=== PATIENT | female | born 1960 | race Caucasian/White ===

== ENCOUNTER 2017-06-04 17:55 | Emergency (ER) | payer OTHER ==
[2017-06-04] MEDS ORDERED: ONDANSETRON 4 MG TAB.RAPDIS PO ONE (18:17)
[2017-06-04] MEDS ORDERED: AMOXICILLIN TRIHYDRATE 250 MG CAPSULE PO ONE (18:17)
[2017-06-04] MEDS ORDERED: ONDANSETRON 4 MG TAB.RAPDIS ONE (18:20)
[2017-06-04] MEDS ORDERED: AMOXICILLIN TRIHYDRATE 250 MG CAPSULE ONE (18:20)
--- NOTE | 2017-06-04 18:21 | ERNOTE ---
Time Seen by Provider: 06/04/17 18:07 Stated Complaint: COLD SYMPTOMS Presenting Symptoms:: cough Source: patient Exam Limitations: no limitations Immunizations: IMMUNIZATION HX Immunizations Up to Date Yes History of Influenza Vaccine No Hx Pneumococcal Vaccination No Allergies/Adverse Reactions: Allergies erythromycin base [Erythromycin Base] Allergy (Unknown, Verified 06/04/17 18:11) Vomiting Home Medications: HOME MEDICATIONS Albuterol Sulfate [Albuterol Sulfate 2.5 MG/0.5ML] 1 vial IH Q4H 06/04/17 [Last Taken Unknown] Amoxicillin 875 mg PO BID #20 tablet 06/04/17 [Last Taken Unknown] Budesonide/Formoterol Fumarate [Symbicort 160-4.5 Mcg Inhaler] 2 puff IH BID [Last Taken Unknown] Ondansetron [Zofran Odt] 4 mg PO Q6H PRN #10 tab 06/04/17 [Last Taken Unknown] - History of Present Ilness Narrative: Patient likely had a viral gastroenteritis earlier this week, if she had nausea vomiting and diarrhea. That appears to have resolved but her COPD with bronchitis as been kicking up since then and every time she coughs she states she has been throwing up again. Patient rates the discomfort as mild to moderate in severity, although it is been improving slowly. Timing: other Severity: mild - slowly getting better Frequency/Possible Cause: Reports: no prior episodes Modifying Factors - Improves: Reports: nothing Modifying Factors - Worsens: Reports: nothing Associated Symptoms: Reports: cough Review of Systems - Review of Systems Constitutional: Present: See HPI EYE: Present: no symptoms reported ENT: Present: no symptoms reported Respiratory: Present: cough Cardiology: Present: no symptoms reported Gastrointestinal/Abdominal: Present: nausea, vomiting Genitourinary: Present: no symptoms reported Musculoskeletal: Present: no symptoms reported Skin: Present: no symptoms reported Neurological: Present: no symptoms reported Endocrine: Present: no symptoms reported Hematologic/Lymphatic: Present: no symptoms reported Psych: Present: no symptoms reported - Patient's Past Medical History Patient History - Medical: No pertinent hx, Other - recent viral illness Patient History - Cardiac/Respiratory: COPD Patient History - Cancer: No Hx of Cancer Patient History - Surgical Procedures: Appendectomy, Tubal Ligation, Other Patient History - Other: None - Social History Living Situations: home Abuse History: No History of abuse Psych History: No pertinent hx Smoking Status: Current every day smoker Have you smoked in the past 12 months: Yes Alcohol Use: none Drug Use: none - Immunizations Immunizations Up to Date: Yes Hx Pneumococcal Vaccination: No History of Influenza Vaccine: No Physical Exam - Physical Exam General Appearance: Present: wd/wn, alert, mild distress Head Exam: Present: normal inspection, no evidence of injury Eye Exam: Normal inspection: bilateral, PERRL: bilateral Ears, Nose, Throat: Present: normal ENT inspection, H, normal pharynx Neck: Present: normal inspection, nontender Respiratory: Present: no respiratory distress, no accessory muscle use, chest nontender, other - fine course breath sounds Cardiovascular/Chest: Present: regular rate, rhythm, no murmur, normal peripheral pulses Gastrointestinal/Abdominal: Present: normal bowel sounds, nondistended, soft, no organomegaly, tenderness - mild epigastric tenderness Rectal Exam: Present: deferred Back Exam: Present: normal inspection, normal range of motion Extremity Exam: Present: normal inspection, non-tender, no edema, normal range of motion Neurological Exam: Present: alert, oriented, normal mood/affect Skin Exam: Present: normal color, warm/dry Lymphatic Exam: Present: no adenopathy ED Progress - Vital Signs Patient's Vital Signs:: I have reviewed the patient's vital signs. Vital Signs: Vital Signs 06/04/17 06/04/17 17:57 18:03 Temperature 36.8 C 36.8 C Pulse Rate 91 91 Respiratory 18 18 Rate Blood Pressure 115/77 115/77 O2 Sat by Pulse 98 98 Oximetry - Progress/Reassessment Chief Complaint: Upper Respiratory Symptoms Plan - Plan Plan: Patient appears to be improving slowly, however it is apparent that her COPD is kicked up some and she'll be started on her requested amoxicillin, given Zofran and she agrees to follow-up with her family physician. Departure Clinical Impression: Gastroenteritis COPD (chronic obstructive pulmonary disease) Qualifiers: COPD type: chronic bronchitis Chronic bronchitis type: simple Qualified Code(s) : J41.0 - Simple chronic bronchitis - Departure Disposition: Home self-care Condition: Good Instructions: Chronic Obstructive Pulmonary Disease, [id number], Acute Bronchitis, [id number], Viral Gastroenteritis, Adult, [id number] Referrals: Arina Quigley DO [Primary Care Provider] - Prescriptions: Amoxicillin 875 mg PO BID #20 tablet Ondansetron [Zofran Odt] 4 mg PO Q6H PRN #10 tab PRN Reason: Nausea And Vomiting
[2017-06-04 18:32] VITALS: BP 118/75
== END 2017-06-04 18:30 | disposition home or self-care (01) ==
LOC: ER 17:55
DX: K52.9 Noninfective gastroenteritis and colitis, unspecified (principal); J41.0 Simple chronic bronchitis; F17.200 Nicotine dependence, unspecified, uncomplicated
CPT/HCPCS: 99284